=== PATIENT | male | born 1990 | race Hispanic/Latino ===

== ENCOUNTER 2020-04-17 08:10 | Day surgery (SDC) | payer BC, OTHER ==
[~2020-04-17] VITALS: Ht 170.2 cm; Wt 98.1 kg
[2020-04-17] MEDS ORDERED: HYDROCODON-ACE1 EA11 PO (11:04)
[2020-04-17] MEDS ORDERED: DICLOFENAC SODI75 MG PO (11:07)
--- NOTE | 2020-04-17 11:20 | NUR ---
04/17/20 1120 Alicja Escoto 1112- PT ARRIVES TO PACU NONAROUSABLE TO NOXIOUS STIMULI. RESP EVEN AND UNLABORED. OXYGEN SAT HIGH 90'S TO 100% ON 6L VIA MASK. 1115- PT AROUSING ON HIS OWN. PT ASKS WHAT TIME IT IS. PT UPDATED ON THE TIME AND THAT HE IS IN THE RECOVERY ROOM. 1117- OXYGEN TITRATED OFF.
--- NOTE | 2020-04-17 13:01 | NUR ---
STEADY ON FEET WITH ONE PERSON STAND BY ASSIST FOR AMBULATION TO BATHROOM. CONTINUES TO DENY NAUSEA OR PAIN
--- NOTE | 2020-04-18 08:03 | OR ---
[facility] [address] [place], [place] [address] Signed DATE OF OPERATION: 04/17/2020 SURGEON: Ehsan Cali MD PREOPERATIVE DIAGNOSIS: Right shoulder labral tear with impingement. POSTOPERATIVE DIAGNOSIS: Right shoulder [place] complex with impingement. PROCEDURE PERFORMED: Right shoulder arthroscopy with subacromial decompression and partial acromioplasty with debridement. DRY SANDER: LOUISA Fountain. Mary Beth was present and critical for all portions of the procedure. ANESTHESIA: General. ESTIMATED BLOOD LOSS: Minimal. IMPLANTS: None. BRIEF HISTORY: Viral is a 29-year-old gentleman, who hurt his shoulder. He had MRI consistent with an anterior labral tear, although no dislocations were reported. Risks and benefits of operative treatment were discussed with him and he elected to proceed. DESCRIPTION OF PROCEDURE: Once consent was obtained, he was taken to the operating room. After adequate anesthesia, he was placed in a beach chair position. All downside pressure points well padded. The shoulder was prepped and draped in a standard sterile fashion. The shoulder was injected with 15 mL of 0.25% Marcaine with epinephrine as was the subacromial space. Standard posterior portal was made, the scope was introduced into the shoulder. Electronically Signed By: EHSAN CALI MD 04/18/20 0803 PATIENT NAME: SONIA CHAMORRO OPERATIVE REPORT DATE OF : 88 REPORT #: [id number] PHYSICIAN: EHSAN CALI MD PCP: YASMIN HENRIQUEZ PAC REPORT IS CONFIDENTIAL AND NOT TO BE RELEASED WITHOUT AUTHORIZATION [facility] [address] [place] [address] Signed ARTHROSCOPIC FINDINGS: Glenohumeral surfaces were intact. The rotator cuff was intact. Biceps, biceps anchor, and labrum were intact. There was a [place] complex anteriorly. No evidence of any erythema or signs of an inflammation around it. The shoulder was quite stable on exam under anesthesia. The scope was withdrawn and subacromial space showed a significant thickening and injection of the bursa. Superior surface of rotator cuff was intact. There was a small hook anteriorly on the acromion. DESCRIPTION OF PROCEDURE: Diagnostic arthroscopy was undertaken as noted above. Standard anterior portal was made using an outside-in technique and the labrum was thoroughly examined. The [place] complex was found to be normal. The scope was then withdrawn, placed in subacromial space. A standard lateral portal was made. The subacromial bursa was removed using combination of the shaver and Mitek VAPR. The hook on the acromion was noted anteriorly and this was flattened off using the barrel bur. There was a mild release of the coracoacromial ligament. All bleeders were cauterized. The scope was withdrawn. Portals closed with 3-0 nylon and shoulder injected with 60 mg Toradol at the end of the case. The wounds were dressed with appropriate dressing. He tolerated the procedure well. All sponge, needle, and instrument counts were correct. Ehsan Cali MD BA/MODL /[id number] Copies: ~ Electronically Signed By: EHSAN CALI MD 04/18/20 0803 PATIENT NAME: SONIA CHAMORRO OPERATIVE REPORT DATE OF : 88 REPORT #: [id number] PHYSICIAN: EHSAN CALI MD PCP: YASMIN HENRIQUEZ PAC REPORT IS CONFIDENTIAL AND NOT TO BE RELEASED WITHOUT AUTHORIZATION
== END 2020-04-17 13:15 | disposition home or self-care (01) ==
LOC: DS 08:10
PROVIDERS: ATTEND Specialist
PROC: 3E0T33Z Introduction of Anti-inflammatory into Peripheral Nerves and Plexi, Percutaneous Approach (ICD-10-PCS; 2020-04-17)
PROC: 0RNJ4ZZ Release Right Shoulder Joint, Percutaneous Endoscopic Approach (ICD-10-PCS; 2020-04-17)
PROC: 3E0T3BZ Introduction of Anesthetic Agent into Peripheral Nerves and Plexi, Percutaneous Approach (ICD-10-PCS; principal; 2020-04-17 10:15)
DX: S43.491A Other sprain of right shoulder joint, initial encounter (principal); M25.811 Other specified joint disorders, right shoulder; G89.18 Other acute postprocedural pain; X58.XXXA Exposure to other specified factors, initial encounter
CPT/HCPCS: 01630; 64415; 76942; J0690; J1100; J1885; J2001; J2250; J2405; J2704; J2795; J7121